=== PATIENT | female | born 1985 | race Caucasian/White ===

== ENCOUNTER → 2019-05-14 | Outpatient (REF) ==
--- NOTE | 2019-05-14 13:45 | REP ---
Clinical: Pain and disability. Technique: AP, lateral, coned-down views of the lumbosacral spine. Findings: Moderate degenerative disc osteophyte complex at the L5-S1 level includes endplate sclerosis, marginal spurring and disc space narrowing with hypertrophic facet changes. Remainder examination appears normal by radiographic evaluation. Impression: Focal moderate degenerative spondylosis at L5-S1. Electronically Signed by Greg Montalvo MD 05/14/2019 01:37 P
== END ==
LOC: M SMT 13:24
PROVIDERS: ATTEND Internal Medicine
DX: Z00.00 Encounter for general adult medical examination without abnormal findings (principal)